=== PATIENT | female | born 1945 | race Caucasian/White ===

== ENCOUNTER → 2016-06-20 | Outpatient (CLI) | payer OTHER ==
[~2016-06-20] MED LIST: AMINOPHYLLINE 25 MG/ML, 10ML ONE; ASPI-650 PO; BIMA2.5D EACHEYE; CALC1CAP8 PO; CEPH-376 PO; CHOL200024 PO; GLUC1CAP18 PO; KRIL1CAP22 PO; LOSA1TAB16 PO; MAGNESIUM PO; MELO-184 PO; METO-93 PO; PANT40TA5 PO; REGADENOSON 0.4 MG/5 ML SYRINGE ONE; VITAMIN B12 PO
== END | disposition home or self-care (01) ==
LOC: CFH 07:54
PROVIDERS: ATTEND Internal Medicine Cardiovascular Disease
DX: I08.3 Combined rheumatic disorders of mitral, aortic and tricuspid valves (principal); I37.1 Nonrheumatic pulmonary valve insufficiency; I10 Essential (primary) hypertension
CPT/HCPCS: 78452; 93017; 93306; A9502; J0280; J2785

== ENCOUNTER → 2016-09-20 | Outpatient (CLI) | payer OTHER ==
[~2016-09-20] MED LIST changes: -AMINOPHYLLINE 25 MG/ML, 10ML ONE; +CYAN1TAB29 PO; +LOSA25TA5 PO; +POTA99TA PO; -REGADENOSON 0.4 MG/5 ML SYRINGE ONE; +magnesium PO
[2016-09-20 10:51] LABS: ASPARTATE AMINO TRANSFERASE 15 U/L (15-37); BLOOD UREA NITROGEN 24 mg/dL (7-18)
== END | disposition home or self-care (01) ==
LOC: STAR 08:42
PROVIDERS: ATTEND Orthopaedic Surgery
DX: Z01.818 Encounter for other preprocedural examination (principal); M17.11 Unilateral primary osteoarthritis, right knee
CPT/HCPCS: 36415; 80053; 81001; 87077; 87081; 87086; 93005

== ENCOUNTER 2016-09-26 10:00 | Inpatient (IN) | payer OTHER ==
[~2016-09-26] VITALS: Ht 171.4 cm; Wt 78.2 kg
[~2016-09-26 10:00] MED LIST changes: +FENTANYL PF 250 MCG/5ML ONE; +MIDAZOLAM 1 MG/ML, 2ML ONE; +ROPIvacaine/PF 0.2%, 20 ML ONE; +ROPIvacaine/PF 0.5%, 30 ML ONE
[2016-09-26] MEDS ORDERED: LACTATED RINGERS 1,000 ML IV SCH (10:50)
[2016-09-26 10:52] VITALS: BP 113/76
[2016-09-26] MEDS ORDERED: LIDOCAINE 1%, 2ML ONE (10:53)
[2016-09-26] MEDS ORDERED: TRANEXAMIC ACID 100 MG/ML, 10ML ONE (10:56)
[2016-09-26] MEDS ORDERED: DIPHENHYDRAMINE 25 MG CAPSULE PO PRN (11:00)
[2016-09-26] MEDS: HYDROcodone/APAP 10/325 MG TABLET PO SCH ×4 (11:00→23:00)
[2016-09-26] MEDS ORDERED: ZOLPIDEM 5MG TABLET PO PRN (11:00)
[2016-09-26] MEDS ORDERED: ONDANSETRON 2MG/ML, 2ML IV PRN (11:00)
[2016-09-26] MEDS ORDERED: SENNA/DOCUSATE TABLET PO PRN (11:00)
[2016-09-26] MEDS ORDERED: VANCOMYCIN PER PHARMACY MC PRN (11:00)
[2016-09-26] MEDS ORDERED: DIAZEPAM 5 MG TABLET PO PRN (11:00)
[2016-09-26] MEDS ORDERED: ONDANSETRON 4 MG TABLET PO PRN (11:00)
[2016-09-26] MEDS ORDERED: ACETAMINOPHEN 650 MG/20.3 ML UDC PO PRN (11:00)
[2016-09-26] MEDS ORDERED: morphine SULFATE 10 MG/ML, 1ML IV PRN (11:00)
[2016-09-26] MEDS ORDERED: VANCOMYCIN 1,500 MG in SODIUM CHLORIDE 0.9% 250 ML IV ONE (11:30)
[2016-09-26] MEDS ORDERED: DEXAMETHASONE 4 MG/ML, 1ML ONE (12:12)
[2016-09-26] MEDS ORDERED: CEFAZOLIN 1,000 MG ONE (12:12)
[2016-09-26] MEDS ORDERED: EPHEDRINE 50 MG/ML, 1ML ONE (12:12)
[2016-09-26] MEDS ORDERED: PROPOFOL 10 MG/ML, 20ML ONE (12:12)
[2016-09-26] MEDS ORDERED: ONDANSETRON 2MG/ML, 2ML ONE (12:12)
[2016-09-26] MEDS ORDERED: ACETAMINOPHEN 325 MG TABLET PO PRN (14:00)
[2016-09-26] MEDS ORDERED: FENTANYL PF 100 MCG/2ML IV PRN (14:00)
[2016-09-26] MEDS ORDERED: PROMETHAZINE 25 MG/ML, 1ML IV PRN (14:00)
[2016-09-26] MEDS ORDERED: ONDANSETRON 2MG/ML, 2ML IVPush PRN (14:00)
[2016-09-26] MEDS ORDERED: OXYcodone 5 MG/5 ML ORAL.SOL UDC PO PRN (14:00)
[2016-09-26] MEDS ORDERED: LABETALOL 5MG/ML, 20ML IV PRN (14:00)
[2016-09-26] MEDS ORDERED: hydrALAzine 20 MG/ML, 1ML IV PRN (14:00)
[2016-09-26] MEDS ORDERED: HYDROmorphone 1 MG/ML, 1ML IV PRN (14:00)
[2016-09-26] MEDS ORDERED: EPHEDRINE 50 MG/ML, 1ML IVPush PRN (14:00)
[2016-09-26] MEDS ORDERED: HYDROcodone/APAP 7.5-325MG/15ML UDC PO PRN (14:00)
[2016-09-26] MEDS ORDERED: FENTANYL PF 100 MCG/2ML ONE (14:17)
[2016-09-26] MEDS ORDERED: OXYcodone 5 MG/5 ML ORAL.SOL UDC ONE (14:17)
[2016-09-26] MEDS ORDERED: ACETAMINOPHEN 650 MG/20.3 ML UDC ONE (14:17)
[2016-09-26] MEDS: D5%-0.45% NACL 1,000 ML IV SCH ×2 (17:48→23:09)
[2016-09-26 18:07] VITALS: BP 135/70
[2016-09-26] MEDS: (Bimatoprost (Lumigan) 1 DROP) EACHEYE SCH (20:43)
[2016-09-26] MEDS: CEFAZOLIN PMX 2GM/50ML 50 ML IVPB SCH (20:43)
[2016-09-26] MEDS: DOCUSATE 100 MG CAPSULE PO SCH (20:57)
[2016-09-26] MEDS: METOPROLOL SUCCINATE 50 MG TAB.ER.24H PO SCH (20:58)
[2016-09-27 02:00] VITALS: BP_SYST 125; BP_SYST 150; BP_DIAS 56; BP_DIAS 70
[2016-09-27] MEDS: HYDROcodone/APAP 10/325 MG TABLET PO SCH ×8 (03:00→22:55)
[2016-09-27] MEDS: CEFAZOLIN PMX 2GM/50ML 50 ML IVPB SCH (04:30)
[2016-09-27] MEDS: ASPIRIN 325 MG TABLET EC PO SCH ×2 (06:27→18:25)
[2016-09-27 08:43] VITALS: BP 107/55
[2016-09-27] MEDS: LOSARTAN 25MG TABLET PO SCH (08:55)
[2016-09-27] MEDS: POTASSIUM GLUCONATE 99 MG PO SCH (08:55)
[2016-09-27] MEDS: PANTOPROZOLE 40MG TABLET PO SCH (08:55)
[2016-09-27] MEDS: MAGNESIUM OXIDE 400 MG TABLET PO SCH (08:55)
[2016-09-27] MEDS: MULTIVITAMINS/MINERALS TABLET PO SCH (08:55)
[2016-09-27] MEDS: DOCUSATE 100 MG CAPSULE PO SCH ×2 (08:55→20:23)
[2016-09-27] MEDS: KETOROLAC 30 MG/1 ML IV SCH ×2 (10:59→18:26)
[2016-09-27 13:05] VITALS: BP 103/35
[2016-09-27] MEDS: D5%-0.45% NACL 1,000 ML IV SCH ×2 (13:20→20:20)
[2016-09-27] MEDS ORDERED: HYDROcodone/APAP 10/325 MG TABLET PO SCH (15:00)
[2016-09-27 19:02] VITALS: BP 100/60
[2016-09-27] MEDS: (Bimatoprost (Lumigan) 1 DROP) EACHEYE SCH (20:20)
[2016-09-27] MEDS: METOPROLOL SUCCINATE 50 MG TAB.ER.24H PO SCH (20:23)
[2016-09-28 01:07] VITALS: BP 102/60
[2016-09-28] MEDS: HYDROcodone/APAP 10/325 MG TABLET PO SCH ×3 (03:08→12:55)
[2016-09-28] MEDS: KETOROLAC 30 MG/1 ML IV SCH (03:08)
[2016-09-28] MEDS: ASPIRIN 325 MG TABLET EC PO SCH (06:00)
[2016-09-28 07:57] VITALS: BP 103/51
[2016-09-28] MEDS: POTASSIUM GLUCONATE 99 MG PO SCH (08:08)
[2016-09-28] MEDS: LOSARTAN 25MG TABLET PO SCH (08:08)
[2016-09-28] MEDS: D5%-0.45% NACL 1,000 ML IV SCH (08:08)
[2016-09-28] MEDS: PANTOPROZOLE 40MG TABLET PO SCH (08:09)
[2016-09-28] MEDS: MAGNESIUM OXIDE 400 MG TABLET PO SCH (08:09)
[2016-09-28] MEDS: DOCUSATE 100 MG CAPSULE PO SCH (08:09)
[2016-09-28] MEDS: MULTIVITAMINS/MINERALS TABLET PO SCH (08:10)
== END 2016-09-28 13:07 | disposition home or self-care (01) | DRG 470 ==
LOC: ORIP 10:00 → 4NOR 15:11
PROVIDERS: ADMIT Orthopaedic Surgery; ATTEND Orthopaedic Surgery
PROC: 0SRC0J9 Replacement of Right Knee Joint with Synthetic Substitute, Cemented, Open Approach (ICD-10-PCS; principal; 2016-09-26 13:00)
DX: M17.11 Unilateral primary osteoarthritis, right knee (principal)
CPT/HCPCS: C1713; J0690; J1100; J1885; J2250; J2405; J2704; J2795; J3010; J3370; Q0162; C1776; J7050; J7120